=== PATIENT | male | born 1955 | race Caucasian/White ===

== ENCOUNTER 2023-11-01 06:32 | Inpatient (IN) ==
[~2023-11-01 06:32] MED LIST: HYDROmorphone 1 MG/1 ML SYRINGE IV PRN; Naloxone 0.4 mg VIAL 0.4 mg/ml 1 ml VIAL IV PRN; Ondansetron 4 mg VIAL 2 MG/ML 2 ml VIAL IV PRN; fentaNYL 100 mcg/2 ml 50 MCG/ML VIAL IV PRN
[2023-11-01] MEDS ORDERED: Lidocaine 2% PF 5 ML VIAL ONE (07:20)
[2023-11-01] MEDS ORDERED: Phenylephrine IV 10 MG/ML 1 ml VIAL ONE (07:20)
[2023-11-01] MEDS ORDERED: Sodium Chloride 0.9% 10 ML ONE (07:22)
[2023-11-01] MEDS ORDERED: Dexamethasone IV 4 MG/ML VIAL 1 ml VIAL ONE ×3 (07:22→07:49)
[2023-11-01] MEDS ORDERED: Ondansetron 4 mg VIAL 2 MG/ML 2 ml VIAL ONE (07:22)
[2023-11-01] MEDS ORDERED: Propofol 10 MG/ML 20 ML BTL ONE (07:22)
[2023-11-01 07:23] LABS: Rapid COVID-19 Molecular Undetected (Undetected)
[2023-11-01] MEDS ORDERED: Midazolam 2 mg/2 ml VIAL 1 mg/ml 2 ml VIAL (2 mg) ONE ×3 (07:24→07:49)
[2023-11-01] MEDS ORDERED: Tranexamic Acid 1 GM/100ML BAG 2,000 MG/200 ML BAG IV ONE (07:24)
[2023-11-01] MEDS ORDERED: ceFAZolin 2 GM PREMIX 2 GM/50 ML BAG ONE (07:24)
[2023-11-01] MEDS ORDERED: fentaNYL 100 mcg/2 ml 50 MCG/ML VIAL ONE ×2 (07:24→07:37)
[2023-11-01] MEDS ORDERED: Rocuronium 50 mg VIAL 10 mg/ml 5 ml VIAL (50 mg) ONE (07:27)
[2023-11-01] MEDS ORDERED: ROPIVACAINE 5 MG/ML 30 ML BTL (0.5%) ONE ×3 (07:38→09:21)
[2023-11-01] MEDS ORDERED: Sevoflurane BOTTLE ONE (07:42)
[2023-11-01] MEDS ORDERED: Bupivacaine 0.5% PF 10 ML SDV VIAL INJ ONE (07:42)
[2023-11-01] MEDS ORDERED: Lidocaine 1% MPF 5 ML VIAL ONE (08:12)
[2023-11-01] MEDS ORDERED: Lactulose 30 ml UDC PO PRN ×2 (11:16→14:12)
[2023-11-01] MEDS ORDERED: Ondansetron 4 mg VIAL 2 MG/ML 2 ml VIAL IV PRN ×2 (11:16→14:14)
[2023-11-01] MEDS ORDERED: Magnesium Hydroxide LIQ 30 ML UDC PO PRN ×2 (11:16→14:13)
[2023-11-01] MEDS ORDERED: Morphine 2 MG/ML SYRINGE IV PRN ×2 (11:16→14:16)
[2023-11-01] MEDS ORDERED: Ondansetron ODT 4 mg TAB 4 MG TAB PO PRN ×2 (11:16→14:14)
[2023-11-01] MEDS ORDERED: Buffered Lidocaine 1% SYRIN 1 ml INTRADERM ONE (12:34)
[2023-11-01] MEDS ORDERED: Lactated Ringers 1000 ml BAG 1,000 ML IV SCH (13:00)
[2023-11-01] MEDS: Lactated Ringers 1000 ml BAG 1,000 ML IV SCH ×2 (13:00→14:33)
[2023-11-01] MEDS: Metoclopramide 5 MG/ML VIAL (10 mg) IV SLOW PU ONE (14:15)
[2023-11-01] MEDS: ceFAZolin 1 GM ADVAN 1 GM in NS 0.9% 50 ML 50 ML IVPB SCH ×2 (14:33→16:19)
[2023-11-01] MEDS: Magnesium Hydroxide LIQ 30 ML UDC PO SCH (20:58)
[2023-11-01] MEDS ORDERED: Magnesium Hydroxide LIQ 30 ML UDC PO SCH (21:00)
[2023-11-02 05:39] LABS: Hematocrit 38.6 % (38-53); Hemoglobin 12.8 g/dL (13.2-16.3); Mean Platelet Volume 8.5 fL (7.5-11.2); Platelet Count 185 10^3/uL (150-450)
[2023-11-02 06:31] LABS: Calcium 8.5 mg/dL (8.6-10.3); Creatinine, Serum 0.82 mg/dL (0.67-1.17); Potassium 4.5 mmol/L (3.5-5.0); eGFR CKD-EPI 96.9 (>60)
[2023-11-02] MEDS: CANAGLIFLOZIN 300 MG PO SCH (08:34)
[2023-11-02] MEDS: Vitamin THERAPEUTIC TAB PO SCH (08:35)
[2023-11-02] MEDS ORDERED: Vitamin THERAPEUTIC TAB PO SCH (09:00)
[2023-11-02 11:26] VITALS: BP 120/77
== END 2023-11-02 14:20 | disposition home or self-care (01) | DRG 470 ==
LOC: INTOOBSV 06:32 → AA 06:32 → SSU 11:16 → UNDODISIN 12:28
PROVIDERS: ADMIT Orthopaedic Surgery Adult Reconstructive Orthopaedic Surgery; ATTEND Orthopaedic Surgery Adult Reconstructive Orthopaedic Surgery

== ENCOUNTER 2024-01-21 06:24 | Inpatient (IN) ==
[~2024-01-21 06:24] MED LIST changes: -HYDROmorphone 1 MG/1 ML SYRINGE IV PRN; +Metoclopramide 5 MG/ML VIAL (10 mg) IV PRN; +NS 0.45% 1000 ml BAG 1,000 ML IV SCH
[2024-01-21 07:11] LABS: Rapid COVID-19 Molecular Undetected (Undetected)
[2024-01-21] MEDS ORDERED: Tranexamic Acid 1 GM/100ML BAG 2,000 MG/200 ML BAG IV ONE (07:35)
[2024-01-21] MEDS ORDERED: ceFAZolin 2 GM in NS PREMIX 2 GM/100 ML BAG IVPB ONE (07:36)
[2024-01-21] MEDS ORDERED: Buffered Lidocaine 1% SYRIN 1 ml ONE (07:36)
[2024-01-21] MEDS: Lactated Ringers 1000 ml BAG 1,000 ML IV SCH ×2 (08:05→13:39)
[2024-01-21] MEDS ORDERED: Midazolam 2 mg/2 ml VIAL 1 mg/ml 2 ml VIAL (2 mg) ONE ×2 (08:19→08:41)
[2024-01-21] MEDS ORDERED: fentaNYL 100 mcg/2 ml 50 MCG/ML VIAL ONE (08:19)
[2024-01-21] MEDS ORDERED: Lidocaine 2% PF 5 ML VIAL ONE ×2 (08:20→08:38)
[2024-01-21] MEDS ORDERED: ROPIVACAINE 5 MG/ML 30 ML BTL (0.5%) ONE ×2 (08:20→08:39)
[2024-01-21] MEDS ORDERED: Propofol 10 MG/ML 20 ML BTL ONE ×3 (08:38→11:36)
[2024-01-21] MEDS ORDERED: KETAMINE HCL 10 MG/ML 20 ml VIAL (200 MG) ONE (10:11)
[2024-01-21] MEDS ORDERED: Phenylephrine IV 10 MG/ML 1 ml VIAL ONE (10:11)
[2024-01-21] MEDS ORDERED: Ondansetron 4 mg VIAL 2 MG/ML 2 ml VIAL ONE (10:13)
[2024-01-21] MEDS ORDERED: Ondansetron 4 mg VIAL 2 MG/ML 2 ml VIAL IV PRN (12:09)
[2024-01-21] MEDS ORDERED: Magnesium Hydroxide LIQ 30 ML UDC PO PRN (12:09)
[2024-01-21] MEDS ORDERED: Calcium Carb (TUMS) 500 mg CHEW TAB PO PRN (12:09)
[2024-01-21] MEDS ORDERED: Lactulose 30 ml UDC PO PRN (12:09)
[2024-01-21] MEDS ORDERED: Ondansetron ODT 4 mg TAB 4 MG TAB PO PRN (12:09)
[2024-01-21] MEDS ORDERED: Morphine 2 MG/ML SYRINGE IV PRN (12:09)
[2024-01-21] MEDS: Acetaminophen IV 1 GM/100ML 1,000 MG/100 ML BAG IV ONE (12:12)
[2024-01-21] MEDS: Buffered Lidocaine 1% SYRIN 1 ml INTRADERM ONE (12:12)
[2024-01-21] MEDS: Scopolamine 1 mg/72hr PATCH TRANSDERM ONE (12:12)
[2024-01-21] MEDS: ceFAZolin 2 GM in NS PREMIX 2 GM/100 ML BAG IVPB SCH (18:18)
[2024-01-21] MEDS: Magnesium Hydroxide LIQ 30 ML UDC PO SCH (20:13)
[2024-01-22 06:17] LABS: Hematocrit 36.7 % (38-53); Hemoglobin 11.9 g/dL (13.2-16.3); Mean Platelet Volume 8.4 fL (7.5-11.2); Platelet Count 161 10^3/uL (150-450)
[2024-01-22 06:53] LABS: Calcium 7.9 mg/dL (8.6-10.3); Creatinine, Serum 0.77 mg/dL (0.67-1.17); Potassium 4.4 mmol/L (3.5-5.0); eGFR CKD-EPI 98.7 (>60)
[2024-01-22] MEDS: Vitamin THERAPEUTIC TAB PO SCH (08:59)
[2024-01-22] MEDS: CANAGLIFLOZIN 300 MG PO SCH (09:00)
[2024-01-22 14:39] VITALS: BP 138/77
== END 2024-01-22 16:40 | disposition home or self-care (01) | DRG 470 ==
LOC: AA 06:24 → INTOOBSV 06:24 → SSU 12:09
PROVIDERS: ADMIT Orthopaedic Surgery Adult Reconstructive Orthopaedic Surgery; ATTEND Orthopaedic Surgery Adult Reconstructive Orthopaedic Surgery